=== PATIENT | male | born 1970 | race Caucasian/White ===

== ENCOUNTER 2017-10-08 11:41 | Emergency (ER) | payer MEDICARE, MEDICAID ==
[~2017-10-08] VITALS: Ht 182.9 cm; Wt 101.2 kg
[~2017-10-08 11:41] MED LIST: BACTROBAN NASAL1 GM TOP; CALCIUM 500 +1 EAC5 PO; CHLORASEPTIC20 ML PO; COLACE100 MG PO; DEPAKOTE ER500 MG PO; GABAPENTIN 100100 MG PO; HALLS COUGH DR1 EACH PO; IBUPROFEN 800800 MG PO; LEXAPRO 10 MG T10 M2 PO; LOPERAMIDE 2 MG2 M1 PO; LOVAZA1000 MG PO; LOXAPINE5 MG PO; MULTIVITAMIN PO; NORCO 5-325 TA1 EAC1 PO; PROCTOZONE-HC30 GM TOP; RISPERIDONE1 MG PO; TRAZODONE 150150 M1 PO; TRICOR145 MG PO; TUCKS1 EAC1 TOP; TYLENOL325 MG PO; VITAMINC500 PO; VYTORIN 10-401 EACH PO
[2017-10-08 12:37] LABS: ABSOLUTE LYMPHOCYTES 2.2 thou/uL (0.8-5.3); ABSOLUTE MONOCYTES 0.5 thou/uL (0.0-1.2); ABSOLUTE NEUTROPHILS 2.4 thou/uL (1.6-8.1); BASOPHILS 0.5 %; EOSINOPHILS 0.9 %; HEMATOCRIT 40.3 % (42.0-52.0); HEMOGLOBIN 13.6 gm/dL (14.0-18.0); LYMPHOCYTES 41.4 %; MCH 28.8 pg (26.0-34.0); MCHC 33.8 g/dL (28.0-37.0); MCV 85.3 fL (80.0-100.0); MONOCYTES 10.3 %; NUCLEATED RBCS 0 /100WBC; PLATELET COUNT* 278 thou/uL (150-400); POLYS 46.9 %; RBC 4.72 mil/uL (4.50-6.00); RDW-CV 13.1 % (10.5-14.5); WBC 5.2 thou/uL (4.0-11.0)
[2017-10-08 12:44] LABS: CALCIUM 9.3 mg/dL (8.5-10.1); CREATININE 1.1 mg/dL (0.6-1.3); POTASSIUM 4.3 mmol/L (3.5-5.1)
[2017-10-08 12:48] LABS: APTT 27.8 Seconds (25.0-31.3); INR 1.1; PROTIME 10.6 Seconds (9.20-11.50)
[2017-10-08 12:49] LABS: ALBUMIN 3.8 g/dL (3.4-5.0); TOTAL BILIRUBIN 0.3 mg/dL (<0.1-1.0); TOTAL PROTEIN 7.8 g/dL (6.4-8.2)
[2017-10-08] MEDS ORDERED: KEFLEX500 M1 PO (14:40)
[2017-10-08 14:52] VITALS: BP 120/75
== END 2017-10-08 14:53 | disposition home or self-care (01) ==
LOC: M.ERS 11:41
PROVIDERS: Personal Emergency Response Attendant
DX: L03.115 Cellulitis of right lower limb (principal); F31.9 Bipolar disorder, unspecified; Z88.8 Allergy status to other drugs, medicaments and biological substances